=== PATIENT | female | born 1945 | race Two or more races ===

== ENCOUNTER → 2024-08-12 | Outpatient (BNVA) | payer OTHER, MEDICAID, SELFPAY | END | disposition home or self-care (01) | PROVIDERS: PCP Nurse Practitioner Family; Referring Provider Nurse Practitioner Family; Visit Provider Nurse Practitioner Family | DX: Z76.89 Persons encountering health services in other specified circumstances (principal); R10.84 Generalized abdominal pain; K59.00 Constipation, unspecified; K45.8 Other specified abdominal hernia without obstruction or gangrene; Z12.11 Encounter for screening for malignant neoplasm of colon; E78.5 Hyperlipidemia, unspecified; I10 Essential (primary) hypertension; M06.9 Rheumatoid arthritis, unspecified | CPT/HCPCS: 99214 ==

== ENCOUNTER → 2024-09-03 | Outpatient (BNVA) | payer OTHER, MEDICAID, SELFPAY | END | disposition home or self-care (01) | PROVIDERS: PCP Nurse Practitioner Family; Referring Provider Nurse Practitioner Family; Visit Provider Nurse Practitioner Family | DX: Z01.810 Encounter for preprocedural cardiovascular examination (principal); Z13.820 Encounter for screening for osteoporosis; Z12.31 Encounter for screening mammogram for malignant neoplasm of breast; M06.9 Rheumatoid arthritis, unspecified; Z13.1 Encounter for screening for diabetes mellitus; H93.19 Tinnitus, unspecified ear; R10.9 Unspecified abdominal pain; K59.00 Constipation, unspecified; E78.5 Hyperlipidemia, unspecified; I10 Essential (primary) hypertension; K45.8 Other specified abdominal hernia without obstruction or gangrene; E66.3 Overweight; Z68.26 Body mass index [BMI] 26.0-26.9, adult | CPT/HCPCS: 93005; 99215 ==

== ENCOUNTER → 2024-09-10 | Outpatient (BNVA) | payer OTHER, MEDICAID, SELFPAY | END | disposition home or self-care (01) | PROVIDERS: PCP Nurse Practitioner Family; Referring Provider Nurse Practitioner Family; Visit Provider Nurse Practitioner Family | DX: E78.5 Hyperlipidemia, unspecified (principal); E55.9 Vitamin D deficiency, unspecified; Z71.2 Person consulting for explanation of examination or test findings; M06.9 Rheumatoid arthritis, unspecified; I10 Essential (primary) hypertension | CPT/HCPCS: 99214 ==

== ENCOUNTER → 2024-09-27 | Outpatient (BNVA) | payer OTHER, MEDICAID, SELFPAY | END | disposition home or self-care (01) | PROVIDERS: PCP Nurse Practitioner Family; Referring Provider Nurse Practitioner Family; Visit Provider Nurse Practitioner Family | DX: M06.9 Rheumatoid arthritis, unspecified (principal); K59.00 Constipation, unspecified | CPT/HCPCS: 99213 ==

== ENCOUNTER → 2024-10-04 | Outpatient (BNVA) | payer OTHER, MEDICAID, SELFPAY | END | disposition home or self-care (01) | PROVIDERS: PCP Nurse Practitioner Family; Referring Provider Nurse Practitioner Family; Visit Provider Nurse Practitioner Family | DX: K59.00 Constipation, unspecified (principal); Z51.89 Encounter for other specified aftercare | CPT/HCPCS: 99213 ==

== ENCOUNTER → 2024-10-11 | Outpatient (BNVA) | payer OTHER, MEDICAID, SELFPAY | END | disposition home or self-care (01) | PROVIDERS: PCP Nurse Practitioner Family; Referring Provider Nurse Practitioner Family; Visit Provider Nurse Practitioner Family | DX: K59.00 Constipation, unspecified (principal) | CPT/HCPCS: 99213 ==

== ENCOUNTER → 2024-10-15 | Outpatient (CLI) | payer OTHER, MEDICAID, SELFPAY ==
--- NOTE | 2024-10-15 14:15 | XR_ITS ---
Examination: Screening digital mammography, bilateral Computer aided detection 3-D breast Tomosynthesis, bilateral Date and time of exam: October 15, 2024 1357 hours Compared to mammograms dating to November 23, 2014 Indication: Screening Technique: Nonmagnified MLO, CC views of the breasts to been obtained, reconstructed from 3-D Tomosynthesis images. R2 computer aided detection program utilized for evaluation of suspicious masses and/or abnormal calcifications. 3-D Tomosynthesis images obtained. Findings: Scattered areas of fibroglandular density. Numerous bilateral calcifications Breast biopsy marker 12:00 position left breast Microcalcifications appear more numerous adjacent to the breast biopsy marker left breast Impression: BI-RADS Category 0: Incomplete: Need additional imaging evaluation More numerous microcalcifications adjacent to the breast biopsy marker 12:00 position left breast, recommend follow-up magnification spot compression films of these calcifications as well as left breast sonography to the workup
--- NOTE | 2024-10-15 14:30 | XR_ITS ---
Examination: Bone densitometry Date and time of exam:October 15, 2024 1421 hours INDICATIONS: Menopause age 50 Technique: Lumbar spine and hip total bone mineralization values of an calculated. Peak reference and age match control results have been displayed. Findings: Lumbar spine total bone mineralization is0.744 gm/cm2. This is 2.8 standard deviations below peak reference. This is 0.1 standard deviations below age-matched controls. Hip total bone mineralization is 0.619 gm/cm2 This is 2.6 standard deviations below peak reference. This is 0.6 standard deviations above age-matched controls Impression: There is osteoporosis based on lumbar spine measurements. There is osteoporosis based on hip measurements Lumbar mineralization is decreased 1.4% compared with 05/29/2018 Hip mineralization is decreased 4.4% compared with May 29, 2018
== END | disposition home or self-care (01) ==
LOC: CDIM 13:44
PROVIDERS: PCP Nurse Practitioner Family; Referring Provider Nurse Practitioner Family; Visit Provider Nurse Practitioner Family
DX: Z12.31 Encounter for screening mammogram for malignant neoplasm of breast (principal); Z13.820 Encounter for screening for osteoporosis; R92.0 Mammographic microcalcification found on diagnostic imaging of breast; M81.8 Other osteoporosis without current pathological fracture
CPT/HCPCS: 77063; 77067; 77080

== ENCOUNTER 2024-11-08 06:29 | Emergency (ER) | payer OTHER, MEDICAID, SELFPAY ==
--- NOTE | 2024-11-08 | XR_ITS ---
MRI abdomen, without contrast. MRCP Date and time of exam: November 08, 2024 1725 hrs. Indications: Severe epigastric pain today with nausea, 6 months of abnormal epigastric pain Technique: Multiple axial and coronal images of the abdomen have been obtained with the Siemens 1.5T MRI scanner. Images obtained included T1 weighted transverse images, T2-weighted transverse images, T2-weighted transverse images fat-suppressed, T2 weighted haste fat suppressed transverse images, T1 weighted images, in and out of phase images, T2-weighted coronal images, breath hold, T2 weighted haze coronal images as well as T2 weighted coronal thick slab images, MRCP. Findings: No focal liver lesions Gallstones No gallbladder wall edema Common bile duct common hepatic duct not enlarged no stones Negative for pancreatitis No peripancreatic edema Spleen is not enlarged Left renal cysts, the largest 3.9 cm No ascites Aorta normal size Impression: Cholelithiasis, negative for cholecystitis Negative for common hepatic or common bile duct stones
[2024-11-08 06:36] VITALS: BP 167/79; PULSE 89; RESP 19; TEMP 36.6; O2SAT 97; BMI 23.4
--- NOTE | 2024-11-08 06:39 | XR_ITS ---
Examination: CT abdomen with intravenous contrast CT pelvis with intravenous contrast 2-D coronal reconstructions 2-D sagittal reconstructions Date and time of exam:November 08, 2024 0838 hrs. Indications: Generalized abdominal pain nausea vomiting today Comparison: October 16, 2023. CTDI: vol (mGy) 6.55 DLP: (mGycm) 333 Technique: Multiple axial sections of the abdomen and pelvis have been obtained. 64 slice high-resolution scanner used. 3 mm axial sections have been obtained, post intravenous injection 60 cc [id number] 2-D sagittal, coronal reconstructions obtained. Low dose protocols were performed. One or more of the following dose reduction techniques were used; automated exposure control, adjustment of the mA and/or KV according to patient size, use of iterative reconstruction technique. Findings: No focal liver or splenic lesions Small gallstones No pancreatic or adrenal mass Left renal cyst, the largest 4.1 cm No hydronephrosis or ureteral calculi Abdominal aortic calcification no aneurysmal dilatation No pericecal inflammatory change No diverticulitis Retroverted uterus Urinary bladder intact Fat-containing right femoral hernia Severe osteopenia, grade 1 anterolisthesis L5 on S1 Impression: Cholelithiasis, recommend hepatobiliary sonography follow-up Negative for pancreatitis Benign left renal cyst No CT findings of appendicitis bowel obstruction or diverticulitis
--- NOTE | 2024-11-08 06:40 | PD.EDRME ---
Rapid Medical Screening Exam RME Arrival date/time: 11/08/24 06:29 78-year-old female presents to the emergency department today complaints of generalized abdominal pain intermittently x 1 year Chief Complaint: Abdominal Pain Vital signs: Vital Signs Temperature 98 F 11/08/24 06:36 Pulse Rate 89 11/08/24 06:36 Respiratory Rate 19 11/08/24 06:36 Blood Pressure 167/79 H 11/08/24 06:36 Pulse Oximetry (%) 97 11/08/24 06:36 Oxygen Delivery Method Room Air 11/08/24 06:36
[2024-11-08 07:18] LABS: Collection Type, Urine Clean Catch; Squamous Epithelial Cell,Urine 0 /hpf (0-5)
[2024-11-08 07:35] LABS: Basophils # (Auto) 0.1 Thou/mm3 (0.0-0.2); Basophils % (Auto) 1 % (0-2.5); Eosinophils # (Auto) 0.1 Thou/mm3 (0.0-0.5); Eosinophils % (Auto) 1 % (0-10); Hematocrit 42.8 % (36.0-46.0); Immature Granulocytes % (Auto) 0 % (0-0); Immature Granulocytes Auto 0.01 Thou/mm3 (0.00-0.00); Lymphocytes % (Auto) 33 % (10-50); Mean Corpuscular HGB Conc 32.7 g/dl (31.0-37.0); Mean Corpuscular Hemoglobin 29.1 pg (25.0-35.0); Mean Corpuscular Volume 89 fL (80-100); Monocytes # (Auto) 0.4 Thou/mm3 (0.0-0.8); Monocytes % (Auto) 7 % (0-12); Neutrophils # (Auto) 3.5 Thou/mm3 (1.8-7.7); Neutrophils % (Auto) 58 % (37-80); Nucleated Red Blood Cell % 0 /100 WBC (0); Platelet Count 236 Thou/mm3 (140-440); RDW Standard Deviation 42.8 fL (36.4-46.3); Red Blood Count 4.81 Miln/mm3 (4.00-5.20); White Blood Count 6.1 Thou/mm3 (3.6-11.0)
[2024-11-08 07:37] LABS: Bilirubin,Urine Negative (Negative); Blood,Urine Trace (Negative); Clarity,Urine Clear (Clear/Hazy); Color,Urine Colorless (Lt Yel-Yel); Culture Indicated,Urine Not Indicated; Glucose, Urine Negative (Negative); Ketones,Urine Negative (Negative); Leukocyte Esterase,Urine Negative (Negative); Nitrite,Urine Negative (Negative); PH,Urine 6.5 (5.0-7.0); Protein,Urine Negative (Neg - Trace); RBC,Urine 1 /hpf (0-3); Specific Gravity,Urine 1.008 (1.001-1.035); Urobilinogen,Urine Negative mg/dL (0.0-1.0); WBC,Urine 1 /hpf (0-5)
[2024-11-08 07:41] LABS: Alanine Aminotransferase 13 U/L (10-49); Albumin, Serum 4.7 gm/dL (3.4-4.8); Albumin/Globulin Ratio 1.5 (1.2-2.2); Alkaline Phosphatase 91 U/L (46-116); Anion Gap 10 (7-16); Aspartate Amino Transferase 28 U/L (0-34); BUN/Creatinine Ratio 24 Ratio (12-20); Blood Urea Nitrogen 17 mg/dL (9-23); Carbon Dioxide 26.8 mMol/L (20.0-31.0); Chloride 104 mMol/L (98-107); Creatinine (Component) 0.7 mg/dL (0.6-1.3); Estimated Creatinine Clearance 47.6 mL/min (>60); Globulin 3.2 gm/dL (2.3-3.5); Glucose 99 mg/dL (74-106); Lipase 50 U/L (12-53); Osmolality,Calculated 282 (275-295); Sodium 141 mMol/L (136-145); Total Protein 7.9 gm/dL (5.7-8.2); eGFR > 60 See Note
--- NOTE | 2024-11-08 07:47 | PD.EDABDPN ---
ED Abdominal Pain RME/HPI General Chief Complaint: Abdominal Pain Stated complaint: ABD PAIN Time seen by provider: 11/08/24 07:17 Arrival date/time: 11/08/24 06:29 RME / HPI RME / HPI narrative: 11/08/24 06:29 78-year-old female presents to the emergency department today complaints of generalized abdominal pain intermittently x 1 year ----- Main ED Evaluation: Patient is a 78-year-old Peruvian-speaking female with past medical history of hypertension and hyperlipidemia who presents to the ED on 11/08/2024 due to severe epigastric abdominal pain radiating to the right and left upper quadrants beginning about 4:00 am this morning waking her from sleep associated with nausea. Patient reports a 6-month history of similar episodes which intermittently become severe enough to make her cry. Patient reports about 6 months ago she had an upper abdominal US during which she stated they pressed down hard hurting her stomach and since then she has experienced severe pain in the the stomach area. Patient has history of hernia repair about 7 years ago and no other surgeries since then. Patient reports medication prescribed from previous doctor visits regarding this pain has helped slightly but does not relieve it completely. Last bowel movement was yesterday and normal, denies hematochezia. Denies any dysuria. MD complaint: abdominal pain Onset (ago): hour(s) Consistency: constant Location: epigastric Severity: severe Severity scale (1-10): 10 Migration to: LUQ and RUQ Relieving factors: medication (medication prescribed from previous doctor visits helps a little bit) Exacerbating factors: nothing Associated symptoms: nausea Related Data Home Medications ?Medication ?Instructions ?Recorded ?Confirmed trazodone 50 mg tablet 50 mg PO QDAY 12/16/24 04/06/25 terconazole 0.4 % vaginal cream 1 appful vaginal QHS 03/01/25 04/06/25 Previous Rx's ?Medication ?Instructions ?Recorded folic acid 1 mg tablet 1 mg PO QDAY #90 tabs 12/16/24 loratadine 10 mg tablet 10 mg PO QDAY #90 tabs 12/16/24 methotrexate sodium 2.5 mg tablet 10 mg (4 x 2.5 mg) PO QWEEK 30 12/16/24 days #20 tabs omeprazole 40 mg capsule,delayed 40 mg PO QDAY #90 caps 03/14/25 release atorvastatin 10 mg tablet 10 mg PO QPM #90 tabs 03/23/25 hydrochlorothiazide 12.5 mg tablet 12.5 mg PO QAM #90 tabs 03/23/25 doxycycline hyclate 100 mg capsule 100 mg PO BID 7 days #14 caps 04/05/25 Allergies Allergy/AdvReac Type Severity Reaction Status Date / Time Penicillins Allergy Intermediate ITCHY Verified 04/06/25 08:14 Review of Systems Review of Systems Systems Reviewed: All systems reviewed, normal except as documented Past Medical History Past Medical History Comments PMH COMMENT: Past Medical History: Hypertension and hyperlipidemia Family History: No pertinent history Surgical History: Hernia repair 2018 Social History: Denies history of smoking, denies current alcohol use, denies recreational drug use Current Medications: Unconfirmed Allergies: Penicillins ED Exam Narrative Physical exam: Physical Exam General: Awake and in mild distress. Conversational and non-toxic appearing. HEENT: Normocephalic, atraumatic, mucous membranes moist. Heart: Regular rate and rhythm, no murmurs. Lungs: Clear to auscultation with no wheezing or crackles. Abdomen: Soft, low abdomen distended, tender to palpation epigastric, right upper, and left upper quadrant, positive bowel sounds. ?No guarding or rebound tenderness. Neurologic: Alert and oriented x3, no gross neurological deficit, and patient able to move all 4 extremities. Extremities: No edema. Skin: No rash or ecchymoses. Course Quality Measures none Orders Category Date Time Status CT Screening NOW Care 11/08/24 06:40 Completed EKG (ED ONLY) *Do not use* NOW Care 11/08/24 09:27 Completed Insert IV NOW Care 11/08/24 06:40 Completed MRI Screening NOW Care 11/08/24 11:[address] abdomen pelvis w con Stat Exams 11/08/24 06:39 Completed CXR [XR chest 1V] Stat Exams 11/08/24 09:27 Completed EKG (ED Only) Stat Exams 11/08/24 09:27 Ordered MR MRCP Stat Exams 11/08/24 Completed US gall bladder Stat Exams 11/08/24 09:19 Completed CBC Stat Lab 11/08/24 07:11 Completed Comprehensive Metabolic Panel Stat Lab 11/08/24 07:11 Completed Lipase Stat Lab 11/08/24 07:11 Completed UA, C/S IF [Urinalysis, C/S if Indicated] Stat Lab 11/08/24 07:11 Completed Morphine Inj Med 11/08/24 06:39 Discontinued 2 mg IVP X1 ONE Morphine Inj Med 11/08/24 10:26 Discontinued 2 mg IVP X1 ONE Morphine Inj Med 11/08/24 15:39 Discontinued 2 mg IVP X1 ONE Ondansetron Inj [Zofran Inj] Med 11/08/24 06:39 Discontinued 4 mg IV X1 ONE mg Hyd/Al Hyd/Christie Susp [Maalox Susp] Med 11/08/24 10:26 Discontinued 30 ml PO X1 ONE Vital Signs Vital signs: Vital Signs Temperature 98 F 11/08/24 06:36 Pulse Rate 89 11/08/24 06:36 Respiratory Rate 19 11/08/24 06:36 Blood Pressure 167/79 H 11/08/24 06:36 Pulse Oximetry (%) 97 11/08/24 06:36 Oxygen Delivery Method Room Air 11/08/24 06:36 Procedures -ED EKG Interpretation #1: Date of EK11/08/24 Time of EK:26 Rate: 57 Interpretation: Interpreted by me EKG Impression: Normal sinus rhythm (Sinus bradycardia) and No acute ST-T changes Abdominal Pain MDM Patient data External records reviewed:: [facility] previous records Clinical information provided by:: patient and family Social determinants that could affect healthcare access:: none Patient has the following chronic illnesses:: Hypertension and hyperlipidemia How is presenting disease/condition affected by chronic disease/condition?: uneffected by Evaluation data The following diagnostics were reviewed and interpreted by me:: lab results and radiology exam(s) Lab and/or radiology exams considered but not ordered:: None Interpretation Summary: Cholelithiasis, no cholecystitis or choledocholithiasis Medications / Prescriptions Medications or Prescriptions considered but not ordered:: None Medication administrations:: Medication Administration History Discontinued Medications Al Hydrox/Mg Hydrox/Simethicone (Mg Hyd/Al Hyd/Christie (Maalox Reg) Susp 30 Ml Udc) 30 ml PO X1 ONE Stop: 11/08/24 10:27 Last Admin: 11/08/24 10:44 Dose: 30 ml Documented By: RD Morphine Sulfate (Morphine Sulf Inj 10 Mg/Ml Vial) 2 mg IVP X1 ONE Stop: 11/08/24 06:40 Last Admin: 11/08/24 08:01 Dose: 2 mg Documented By: BERRY Morphine Sulfate (Morphine Sulf Inj 10 Mg/Ml Vial) 2 mg IVP X1 ONE Stop: 11/08/24 10:27 Last Admin: 11/08/24 10:44 Dose: 2 mg Documented By: RD Morphine Sulfate (Morphine Sulf Inj 10 Mg/Ml Vial) 2 mg IVP X1 ONE Stop: 11/08/24 15:40 Last Admin: 11/08/24 16:47 Dose: 2 mg Documented By: BERRY Ondansetron HCl (Ondansetron Inj 2 Mg/Ml Inj 2 Ml) 4 mg IV X1 ONE; Protocol Stop: 11/08/24 06:40 Last Admin: 11/08/24 08:01 Dose: 4 mg Documented By: BERRY As above Consultations Consultation(s) initiated? (list below): Yes Consultation #1 (Physician, Specialty, Details): General Surgery, Dr. Dalal Evaluated the patient at bedside via physical examination and reviewed the imaging findings. [place] that patient's pain was less likely secondary to gallbladder etiology. Recommended outpatient GI follow up. Diagnosis Differential diagnosis abdominal pain: abdominal pain and other Most likely diagnosis given after review of the tests above:: Cholelithiasis, gallbladder attacks, hiatal hernia, constipation, gastritis, esophagitis Admission Indicated Admission indicated?: not indicated Explain why admission is indicated or not indicated:: Patient had improvement of symptoms during ED stay, ready to return home. Admission Request Was there a request for admission?: No Disposition Plan Disposition Plan: Discharge Discharge Attestation Discharge Attestation: The patient and all family members were given an opportunity to ask questions and understood the discharge instructions. Discharge instructions specifically effects, indications for sooner follow up or return to the emergency department, and the expected course of current diagnosis. Patient condition: Stable Discharge Plan Plan Patient Disposition: HOME (Self Care) Patient condition on transfer: Stable Prescriptions/Referrals Prescriptions/Med Rec: No Action atorvastatin 10 mg tablet 10 mg PO QPM Qty: 90 0RF hydrochlorothiazide 12.5 mg tablet 12.5 mg PO QAM Qty: 90 0RF folic acid 1 mg tablet 1 mg PO QDAY Qty: 90 0RF loratadine 10 mg tablet 10 mg PO QDAY Qty: 90 0RF methotrexate sodium 2.5 mg tablet 10 mg PO QWEEK 30 Days Qty: 20 1RF Rx Instructions: Directions in [place]uvian trazodone 50 mg tablet 50 mg PO QDAY terconazole 0.4 % cream 1 appful vaginal QHS doxycycline hyclate 100 mg capsule 100 mg PO BID 7 Days Qty: 14 0RF omeprazole 40 mg capsule,delayed release(DR/EC) 40 mg PO QDAY Qty: 90 0RF Referrals: Tessa LLAMAS,Saloni Villagran, NATIONAL ACCOUNT MANAGER [Primary Care Provider] - In 1 week Problem List Clinical Impression: Abdominal pain, epigastric Patient/Caregiver Discharge Instructions Education Materials: Abdominal Pain, Medicine for Pain, ED Pain, Acute, Uncertain Cause Additional Instructions: Today you were seen for epigastric abdominal pain. All the results of your studies were normal, including a CT scan, Ultrasound, and MRI of the abdomen. It does show some stones in your gallbladder, but no acute inflammation or infection and the surgeon came to evaluate you and decided that the gallbladder is very unlikely to be causing these attacks of pain. Please follow up with your regular primary care provider (PCP) or doctor if you continue to have abdominal pain. Please come back to the ED if you notice any bloody vomit, bloody stool, or unrelenting abdominal pain that is not relieved by other measures. ---- Hoy lo examinaron por dolor abdominal epig?strico. Todos los resultados de conrad estudios fueron normales, incluida ian tomograf?a computarizada, ian ecograf?a y ian resonancia magn?corin del abdomen. Muestra algunos c?lculos en la ves?cula biliar, katy no hay inflamaci?n ni infecci?n aguda y el cirujano vino a evaluarlo y decidi? que es muy poco probable que la ves?cula biliar est? causando estos ataques de dolor. Realice un seguimiento con hunt m?dico de cabecera (PCP) o hunt m?dico habitual si contin?a teniendo dolor abdominal. Regrese al departamento de emergencias si nota v?mitos con uli, heces con uli o dolor abdominal persistente que no se bonita con otras medidas. Print Language: Peruvian Stand Alone Forms: [employer]emin Award Info., Patient Portal Info Letter
[2024-11-08 08:00] VITALS: BP 144/75; PULSE 69; RESP 17; TEMP 36.6; O2SAT 98
[2024-11-08] MEDS: ONDANSETRON INJ 2 MG/ML INJ 2 ML 4 MG IV (08:01)
[2024-11-08] MEDS: MORPHINE SULF INJ 10 MG/ML VIAL 2 MG IVP ×3 (08:01→16:47)
--- NOTE | 2024-11-08 09:19 | XR_ITS ---
Examination: Abdomen sonogram, Limited Date and time of exam: November 08, 2024 0942 hrs. Indications: Epigastric pain abdominal pain beginning 4:00 AM this morning Technique: Real-time steele scale transabdominal sonographic images of the upper abdomen obtained. Findings: Multiple gallstones Gallbladder wall is thickened 0.49 cm although no edema Common bile duct 0.4 cm Pancreatic head 2.2 cm Liver 13.1 cm smooth contour no focal liver lesions Normal hepatopedal portal venous flow Patent IVC Impression: Cholelithiasis Abnormally thickened gallbladder wall, recommend HIDA scan or MRCP follow-up to exclude cholecystitis
--- NOTE | 2024-11-08 09:27 | XR_ITS ---
Examination: PA chest single view Technique: Upright PA chest single view Exam date and time: November 08, 2024 10:11 AM Indications: Epigastric pain 6 months getting worse. Findings: Normal heart size Mild prominence pulmonary vasculature No lobar pneumonia Prominent osteopenia Impression: No pneumonia or pulmonary edema
[2024-11-08 10:30] VITALS: BP 135/73; PULSE 57; RESP 19; TEMP 36.6; O2SAT 100
[2024-11-08] MEDS: MG HYD/AL HYD/SIME (Maalox Reg) SUSP 30 ML UDC PO (10:44)
[2024-11-08 12:38] VITALS: BP 123/73; PULSE 58; RESP 17; TEMP 36.2; O2SAT 92
[2024-11-08 15:08] VITALS: BP 138/72; PULSE 61; RESP 18; TEMP 36.5; O2SAT 100
[2024-11-08 16:57] VITALS: BP 132/82; PULSE 69; RESP 16; TEMP 37.1; O2SAT 98
== END 2024-11-08 19:21 | disposition home or self-care (01) ==
PROVIDERS: Nurse Practitioner Primary Care; Emergency Provider Emergency Medicine; PCP Nurse Practitioner Family
DX: K80.20 Calculus of gallbladder without cholecystitis without obstruction (principal); R10.13 Epigastric pain; R00.1 Bradycardia, unspecified; I10 Essential (primary) hypertension; E78.5 Hyperlipidemia, unspecified
CPT/HCPCS: 36415; 71045; 74177; 76705; 80053; 81001; 83690; 85025; 93005; 96374; 96375; 96376; 99285; A4649; J2270; J2405; Q9967; S8037; 74181; A9270

== ENCOUNTER → 2024-11-15 | Outpatient (BNVA) | payer OTHER, MEDICAID, SELFPAY | END | disposition home or self-care (01) | PROVIDERS: PCP Nurse Practitioner Family; Referring Provider Nurse Practitioner Family; Visit Provider Nurse Practitioner Family | DX: K80.20 Calculus of gallbladder without cholecystitis without obstruction (principal); R19.00 Intra-abdominal and pelvic swelling, mass and lump, unspecified site; K46.9 Unspecified abdominal hernia without obstruction or gangrene; K45.8 Other specified abdominal hernia without obstruction or gangrene; Z76.89 Persons encountering health services in other specified circumstances | CPT/HCPCS: 99214 ==

== ENCOUNTER → 2024-12-10 | Outpatient (BNVA) | payer OTHER, MEDICAID, SELFPAY | END | disposition home or self-care (01) | PROVIDERS: PCP Nurse Practitioner Family; Referring Provider Nurse Practitioner Family; Visit Provider Nurse Practitioner Family | DX: Z01.812 Encounter for preprocedural laboratory examination (principal) ==

== ENCOUNTER → 2024-12-16 | Outpatient (BNVA) | payer OTHER, MEDICAID, SELFPAY | END | disposition home or self-care (01) | PROVIDERS: PCP Nurse Practitioner Family; Referring Provider Nurse Practitioner Family; Visit Provider Nurse Practitioner Family | DX: Z71.2 Person consulting for explanation of examination or test findings (principal); M06.9 Rheumatoid arthritis, unspecified; R10.84 Generalized abdominal pain; E78.5 Hyperlipidemia, unspecified; I10 Essential (primary) hypertension; K45.8 Other specified abdominal hernia without obstruction or gangrene | CPT/HCPCS: 99213 ==

== ENCOUNTER → 2024-12-31 | Outpatient (BNVA) | payer OTHER, MEDICAID, SELFPAY | END | disposition home or self-care (01) | PROVIDERS: PCP Nurse Practitioner Family; Referring Provider Nurse Practitioner Family; Visit Provider Nurse Practitioner Family | DX: Z12.11 Encounter for screening for malignant neoplasm of colon (principal) ==

== ENCOUNTER → 2025-02-09 | Outpatient (BNVA) | payer OTHER, MEDICAID, SELFPAY | END | disposition home or self-care (01) | PROVIDERS: PCP Nurse Practitioner Family; Referring Provider Nurse Practitioner Family; Visit Provider Nurse Practitioner Family | DX: N89.9 Noninflammatory disorder of vagina, unspecified (principal); Z11.3 Encounter for screening for infections with a predominantly sexual mode of transmission | CPT/HCPCS: 99214 ==

== ENCOUNTER → 2025-02-11 | Outpatient (BNVA) | payer OTHER, MEDICAID, SELFPAY | END | disposition home or self-care (01) | PROVIDERS: PCP Nurse Practitioner Family; Referring Provider Nurse Practitioner Family; Visit Provider Nurse Practitioner Family | DX: Z76.89 Persons encountering health services in other specified circumstances (principal); N89.9 Noninflammatory disorder of vagina, unspecified | CPT/HCPCS: 99212; G0463 ==

== ENCOUNTER → 2025-02-18 | Outpatient (BNVA) | payer OTHER, MEDICAID, SELFPAY | END | disposition home or self-care (01) | PROVIDERS: PCP Nurse Practitioner Family; Referring Provider Nurse Practitioner Family; Visit Provider Nurse Practitioner Primary Care | DX: Z51.89 Encounter for other specified aftercare (principal); N94.10 Unspecified dyspareunia | CPT/HCPCS: 99214 ==

== ENCOUNTER → 2025-03-01 | Outpatient (BNVA) | payer OTHER, MEDICAID, SELFPAY | END | disposition home or self-care (01) | PROVIDERS: PCP Nurse Practitioner Primary Care; Referring Provider Nurse Practitioner Primary Care; Visit Provider Nurse Practitioner Primary Care | DX: Z71.2 Person consulting for explanation of examination or test findings (principal) | CPT/HCPCS: 99213 ==

== ENCOUNTER → 2025-03-23 | Outpatient (BNVA) | payer OTHER, MEDICAID, SELFPAY | END | disposition home or self-care (01) | PROVIDERS: PCP Nurse Practitioner Family; Referring Provider Nurse Practitioner Family; Visit Provider Nurse Practitioner Family | DX: Z71.2 Person consulting for explanation of examination or test findings (principal); R22.43 Localized swelling, mass and lump, lower limb, bilateral; E78.5 Hyperlipidemia, unspecified; I10 Essential (primary) hypertension; R10.84 Generalized abdominal pain; K59.00 Constipation, unspecified; M06.9 Rheumatoid arthritis, unspecified; K45.8 Other specified abdominal hernia without obstruction or gangrene; R19.00 Intra-abdominal and pelvic swelling, mass and lump, unspecified site; K80.80 Other cholelithiasis without obstruction | CPT/HCPCS: 99214 ==

== ENCOUNTER → 2025-04-05 | Outpatient (BNVA) | payer OTHER, MEDICAID, SELFPAY | END | disposition home or self-care (01) | PROVIDERS: PCP Nurse Practitioner Family; Referring Provider Nurse Practitioner Family; Visit Provider Nurse Practitioner Family | DX: N75.0 Cyst of Bartholin's gland (principal) | CPT/HCPCS: 99213; J0696 ==

== ENCOUNTER → 2025-04-06 | Outpatient (BNVA) | payer OTHER, MEDICAID, SELFPAY | END | disposition home or self-care (01) | PROVIDERS: PCP Nurse Practitioner Family; Referring Provider Nurse Practitioner Family; Visit Provider Nurse Practitioner Primary Care | DX: M79.89 Other specified soft tissue disorders (principal); I10 Essential (primary) hypertension; K45.8 Other specified abdominal hernia without obstruction or gangrene | CPT/HCPCS: 99214 ==

== ENCOUNTER → 2025-04-20 | Outpatient (BNVA) | payer OTHER, MEDICAID, SELFPAY | END | disposition home or self-care (01) | PROVIDERS: PCP Nurse Practitioner Family; Referring Provider Nurse Practitioner Family; Visit Provider Nurse Practitioner Family | DX: I10 Essential (primary) hypertension (principal); K45.8 Other specified abdominal hernia without obstruction or gangrene; R60.0 Localized edema | CPT/HCPCS: 99213 ==

== ENCOUNTER → 2025-06-01 | Outpatient (BNVA) | payer OTHER, MEDICAID, SELFPAY | END | disposition home or self-care (01) | PROVIDERS: PCP Nurse Practitioner Primary Care; Referring Provider Nurse Practitioner Primary Care; Visit Provider Nurse Practitioner Primary Care | DX: S20.362A Insect bite (nonvenomous) of left front wall of thorax, initial encounter (principal); W57.XXXA Bitten or stung by nonvenomous insect and other nonvenomous arthropods, initial encounter; R07.89 Other chest pain | CPT/HCPCS: 93005; 99213 ==